=== PATIENT | female | born 1960 | race Two or more races ===

== ENCOUNTER → 2022-08-08 | Outpatient (CLI) | payer MEDICAID | END | disposition home or self-care (01) | LOC: LAB 10:05 | PROVIDERS: ATTEND Internal Medicine Pulmonary Disease | DX: Z01.812 Encounter for preprocedural laboratory examination (principal); Z20.822 Contact with and (suspected) exposure to COVID-19 | CPT/HCPCS: 36415; 87426 ==

== ENCOUNTER → 2022-08-09 | Outpatient (CLI) | payer MEDICAID ==
[~2022-08-09] MED LIST: ALBUTEROL MEDNEB 2.5 mg/3ml NEB ONE
== END | disposition home or self-care (01) ==
LOC: RT 07:36 → EDSTATUS 14:25
PROVIDERS: ATTEND Internal Medicine Pulmonary Disease
DX: J44.9 Chronic obstructive pulmonary disease, unspecified (principal)
CPT/HCPCS: 94060; 94727; 94729

== ENCOUNTER → 2024-12-04 | Outpatient (CLI) | payer MEDICAID ==
[~2024-12-04] MED LIST changes: -ALBUTEROL MEDNEB 2.5 mg/3ml NEB ONE; +ALBUTEROL SULF 2.5 MG/0.5ML(0.5%) NEB SOLN ONE
--- NOTE | 2024-12-08 14:15 | DVHNC2 ---
Procedure - 6 minute walk test interpretation December 04, 2024 Completed 6 minutes of ambulation. Exertional hypoxia to 85%. She recovered and 30 seconds. Patient recovered by the end of the test to 95%. Expected heart rate not achieved. Patient was able to ambulate 1200 ft. HERNANDEZ CAMPOS RESIDENT December 08, 2024 14:15
== END | disposition home or self-care (01) ==
LOC: RT 08:29
PROVIDERS: ATTEND Internal Medicine Pulmonary Disease
DX: J96.11 Chronic respiratory failure with hypoxia (principal)
CPT/HCPCS: 94618